=== PATIENT | female | born 1960 | race Caucasian/White ===

== ENCOUNTER 2016-12-19 09:45 | Emergency (ER) | payer BC ==
[2016-12-19 10:01] VITALS: BP 155/79; PULSE 94; TEMP 97.9; BMI 32.5
[2016-12-19] MEDS ORDERED: CEPHALEXIN MONOHYDRATE 500 MG CAPSULE (UD) PO ONE (10:29)
[2016-12-19] MEDS ORDERED: DIPHTH,PERTUSS(ACELL),TET 0.5 ML DISP.SYRIN IM ONE (10:29)
[2016-12-19] MEDS ORDERED: SILVER SULFADIAZINE 1% TOP CREAM 50 GM JAR TP ONE ×2 (10:29→10:33)
[2016-12-19] MEDS ORDERED: IBUPROFEN 400 MG TABLET (FP) PO ONE ×2 (10:29→10:33)
[2016-12-19] MEDS ORDERED: CEPHALEXIN MONOHYDRATE 500 MG CAPSULE (UD) ONE (10:33)
--- NOTE | 2016-12-19 10:58 | PDOC ---
History of Present Illness - General Chief Complaint: Burn Stated Complaint: INJURY/BURN Time Seen by Provider: 12/19/16 10:27 History Source: Patient Exam Limitations: No Limitations - History of Present Illness Initial Comments: 12/19/16 11:11 56 yr female with c/o hot oil burn on her left arm this am at home cooking. Pt applied vaseline to the burn. Occurred: reports: just prior to arrival Severity: reports: moderate Pain Location: reports: upper extremity (left arm ) Past History - Past Medical History Allergies/Adverse Reactions: Allergies Allergy/AdvReac Type Severity Reaction Status Date / Time No Known Allergies Allergy Verified 12/19/16 10:01 Home Medications: Ambulatory Orders Cephalexin Monohydrate [Keflex -] 500 mg PO BID #10 capsule 12/19/16 Insulin Lispro [Humalog] 20 unit SQ BID 12/19/16 Losartan Potassium 100 mg PO DAILY 12/19/16 Metformin HCl [Glucophage] 1,000 mg PO BID 12/19/16 Silver Sulfadiazine [Silvadene] 85 gm TP BID #1 cream..g. 12/19/16 Simvastatin 40 mg PO HS 12/19/16 Diabetes: Yes HTN: Yes - Psycho/Social/Smoking Cessation Hx Suicidal Ideation: No Smoking History: Never smoked Information on smoking cessation initiated: No Hx Alcohol Use: No Drug/Substance Use Hx: No Substance Use Type: None Trauma Specific PMHX - Complaint Specific PMHX Arthritis: No Back Injury: No Neck Injury: No Hx Sacro Iliac Joint Dysfunction: No Review of Systems - Review of Systems Able to Perform ROS?: Yes Is the patient limited Upper Sorbian proficient: No Constitutional: No: Symptoms Reported HEENTM: No: Symptoms Reported Respiratory: No: Symptoms reported Cardiac (ROS): No: Symptoms Reported ABD/GI: No: Symptoms Reported : No: Symptoms Reported Musculoskeletal: No: Symptoms Reported Integumentary: Yes: See HPI *Physical Exam - Vital Signs Last Vital Signs Temp Pulse Resp BP Pulse Ox 97.9 F 94 H 18 155/79 98 12/19/16 09:59 12/19/16 09:59 12/19/16 09:59 12/19/16 09:59 12/19/16 09:59 - Physical Exam General Appearance: Yes: Nourished, Appropriately Dressed HEENT: positive: EOMI, MEI, Normal ENT Inspection, TMs Normal, Pharynx Normal Respiratory/Chest: positive: Lungs Clear, Normal Breath Sounds Cardiovascular: positive: Regular Rhythm, Regular Rate Musculoskeletal: positive: Normal Inspection Extremity: positive: Normal Capillary Refill, Normal Inspection, Normal Range of Motion Integumentary: positive: Other (left forearm with Blisters, moist red inner arm ) Neurologic: positive: Fully Oriented, Alert, Normal Mood/Affect, Normal Response , Motor Strength 5/5 Procedures - Laceration/Wound Repair Left Medial Arm Progress: 12/19/16 11:20 silvadene placed wounds cleaned with warm water sterile dressing placed non stick 12/19/16 11:24 ED Treatment Course - Medications Given in the ED: ED Medications Discontinued Medications Generic Name Dose Route Start Last Admin Trade Name Karina PRN Reason Stop Dose Admin Cephalexin HCl 500 mg 12/19/16 10:29 12/19/16 10:50 Keflex - PO 12/19/16 10:30 500 mg ONCE ONE Administration Diphtheria/Tetanus/Acell Pertussis 0.5 ml 12/19/16 10:29 12/19/16 10:50 Boostrix - IM 12/19/16 10:30 0.5 ml .ONCE ONE Administration Ibuprofen 800 mg 12/19/16 10:29 12/19/16 10:50 Motrin - PO 12/19/16 10:30 800 mg ONCE ONE Administration Silver Sulfadiazine 1 applic 12/19/16 10:29 12/19/16 10:50 Silvadene - TP 12/19/16 10:30 1 applic ONCE ONE Administration Medical Decision Making - Medical Decision Making 12/19/16 11:21 cc: burn with hot oil at home while cooking pt applied vaseline [employer] wound washed off and silvadene placed with sterile non stick gauze and kerlix wrap pt aware of the need for strict follow up with her PMD tomorrow and to follow up with the burn clinic at [facility] pt and her son are aware of the dc plan and all questions asked and answered at discharge. pt feels comfortable with the plan of care. 12/19/16 11:[address] on keflex as pt is a diabetic 12/19/16 11:25 12/19/16 11:25 *DC/Admit/Observation/Transfer Diagnosis at time of Disposition: Burn - Discharge Dispostion Disposition: HOME Condition at time of disposition: Good - Prescriptions Prescriptions: Cephalexin Monohydrate [Keflex -] 500 mg PO BID #10 capsule Silver Sulfadiazine [Silvadene] 85 gm TP BID #1 cream..g. - Referrals Referrals: Denise Camacho MD [Primary Care Provider] - - Patient Instructions Printed Discharge Instructions: How to Take Care of a Burn, DI for [facility] Additional Instructions: follow with your doctor tomorrow keep the dressing clean and dry take motrin for pain as needed take keflex as directed to prevent infection apply the silvadene twice a day to the burned area to keep the burn covered in the cream, cover with sterile dressing Return if any worsening symptoms you may also follo up at the burn center at [facility] for further treatment call [phone] to make appointment
== END 2016-12-19 11:27 | disposition home or self-care (01) ==
LOC: JERFT 09:45
PROC: 2W2DX4Z Dressing of Left Lower Arm using Bandage (ICD-10-PCS; principal; 2016-12-19)
PROC: 3E0234Z Introduction of Serum, Toxoid and Vaccine into Muscle, Percutaneous Approach (ICD-10-PCS; 2016-12-19)
DX: T22.212A Burn of second degree of left forearm, initial encounter (principal); X10.2XXA Contact with fats and cooking oils, initial encounter; Y93.G3 Activity, cooking and baking; Y92.030 Kitchen in apartment as the place of occurrence of the external cause
CPT/HCPCS: 90715; 99281-25